=== PATIENT | male | born 2005 | race Hispanic/Latino ===

== ENCOUNTER 2024-01-04 09:39 | Outpatient (CLI) | payer OTHER, SELFPAY ==
[2024-01-23 11:22] VITALS: BMI 36.9
--- NOTE | 2024-01-23 11:22 | WPDSLEEPSTUD ---
Sleep Study Date of Study: 01/04/24 Ordering Provider: Juan F Hernandez, CANDIDO Interpreting Physician: Jasmin White, DO Sleep Study Type: Split Polysomnogram Height: 1.88 m Weight: 130.635 kg Body Mass Index: 36.9 Neck Circumference (inches): 16.5 [place]: 12 Reason for Sleep Study Loud snoring, daytime hypersomnia, multiple nighttime awakenings Sleep History The patient is a 19 old male had a sleep study ordered by his primary care for evaluation of sleep apnea. The patient rarely awakens from sleep short of breath. He frequently awakens at night with heartburn, belching or cough. He frequently snores and it is frequently loud enough that others complain. He occasionally has trouble sleeping when he has a cold. He rarely wakes up gasping for air throughout the night. He occasionally has breathing problems at night observed by himself or others. He frequently sweats excessively at night. He rarely has heart palpitations or irregular heartbeats during the night. He denies falling asleep during the day and while driving. He rarely experiences loss of muscle tone when extremely emotional. He occasionally has trouble at school or work due to sleepiness. He denies feeling unable to move while waking up or falling asleep. He frequently experiences vivid dreamlike scenes upon awakening or falling asleep. He denies feeling afraid of going to sleep. He rarely has nightmares rarely remembers his dreams. He denies having thoughts racing through his mind. He occasionally feels sad or depressed. He rarely has anxiety. He frequently has muscular tension. He occasionally notices parts of his body jerk. He rarely kicks during the night. He denies having crawling and aching feelings in his legs and denies having leg pain during the night. He frequently grinds his teeth during sleep and occasionally awakens with morning jaw pain. He denies being bothered by pain during the day and denies being awakened by pain during the night. He occasionally wakes up feeling stiff in the morning. He denies waking up with sore or achy muscles. He rarely wakes up with pain in the neck, spine and joints. He goes to bed between 10-11 p.m. on weekdays and between 11:00 p.m. to midnight on the weekends. It takes him 10-30 minutes to fall asleep. He wakes up 2-3 times throughout the night to urinate and is able to fall back asleep within 5 minutes. He wakes up at 5:00 a.m. on weekdays and between 7-8 a.m. on the weekends. He typically gets 6-7 hours of sleep per night. He will stay in bed for 20-30 minutes after waking up in the morning. He currently lives with his girlfriend. He denies consuming any caffeinated beverages within 2 hours of bedtime. He denies engaging in physical exercise before bedtime. He will watch television before falling asleep. He denies taking naps in the afternoon or the evening. He denies consuming any caffeinated beverages throughout the day. He denies tobacco, alcohol and recreational drug use. Sleep Procedure A full night polysomnogram using the [place] [employer] Cell multi-channel system recorded the standard physiologic parameters including EEG, EOG, submentalis EMG, anterior tibialis EMG, EKG, body position, nasal and oral airflow using nasal pressure sensor and thermistor.? Respiratory parameters of chest and abdominal movements were recorded with Respiratory Inductance Plethysmography belts. Oxygen saturation was recorded by pulse oximetry. Video monitoring was also performed. Sleep stages, periodic limb movements, and EEG arousals were scored in 30 second epochs according to the criteria of the AASM Scoring Manual. The Apnea-Hypopnea Index was calculated using CMS guidelines for definition of hypopnea with 4% O2 desaturations while scoring respiratory events. Sleep Architecture During the diagnostic portion of the study, the total recording time was 139.4 minutes. The total sleep time was 128.5 minutes. Sleep latency was 0.
== END 2024-01-05 07:44 | disposition home or self-care (01) ==
LOC: ANHCSM 09:41
PROVIDERS: PCP Registered Nurse; Visit Provider Registered Nurse
DX: G47.33 Obstructive sleep apnea (adult) (pediatric) (principal)
CPT/HCPCS: 95811